=== PATIENT | male | born 1995 | race Two or more races ===

== ENCOUNTER 2019-01-02 21:22 | Emergency (ER) | payer SELFPAY ==
[~2019-01-02] VITALS: Ht 172.7 cm; Wt 60.4 kg
[2019-01-02 21:43] LABS: BASO % 0 % (0-3); EOS # 0.2 x10^3/uL (0.0-0.7); EOS % 2 % (0-3); HEMATOCRIT 41.4 % (39.0-53.0); LYMPH # 2.3 x10^3/uL (1.0-4.8); LYMPH % 23 % (24-48); MEAN CORPUSCULAR HEMOGLOBIN 28 pg (25-35); MEAN CORPUSCULAR HGB CONC 34 g/dL (31-37); MEAN CORPUSCULAR VOLUME 84 fL (79-100); MONO # 0.6 x10^3/uL (0.0-1.1); MONO % 7 % (0-9); NEUT # 6.7 x10^3/uL (1.8-7.7); NEUT % 68 % (31-73); PLATELET COUNT 152 x10^3/uL (140-400); RED BLOOD COUNT 4.91 x10^6/uL (4.30-5.70); RED CELL DISTRIBUTION WIDTH 12.8 % (11.5-14.5); WHITE BLOOD COUNT 9.9 x10^3/uL (4.0-11.0)
[2019-01-02 21:51] LABS: CALCIUM 8.6 mg/dL (8.5-10.1); CREATININE 1.1 mg/dL (0.7-1.3); GFR 82.2; POTASSIUM 3.5 mmol/L (3.5-5.1); PROTHROMBIN TIME PATIENT 14.5 SEC (11.7-14.0)
[2019-01-02 21:56] LABS: ALBUMIN 3.6 g/dL (3.4-5.0); TOTAL BILIRUBIN 0.5 mg/dL (0.2-1.0); TOTAL PROTEIN 7.2 g/dL (6.4-8.2)
[2019-01-02] MEDS ORDERED: IV NORMAL SALINE 1000ML BAG 1,000 ML IV SCH (22:00)
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
[2019-01-02] MEDS ORDERED: IOHEXOL 300 MG/ML 100ML VIAL. IV ONE (22:45)
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
[2019-01-02] MEDS ORDERED: DIPHTH,PERTUSS(ACELL),TET TOX 0.5 ML DISP.SYRIN. VAX IM ONE (23:00)
[2019-01-02] MEDS ORDERED: IV NORMAL SALINE 1000ML BAG 1,000 ML IV ONE (23:00)
[2019-01-02] MEDS ORDERED: fentaNYL PF VIAL 100 MCG/2 ML VIAL IV ONE (23:00)
[2019-01-02] MEDS ORDERED: ONDANSETRON PF 4 MG/2 ML VIAL. IV ONE (23:00)
[2019-01-02] MEDS ORDERED: CONTRAST GIVEN. MC PRN (23:00)
[2019-01-02 23:28] LABS: BILIRUBIN,URINE NEGATIVE (NEG); CLARITY,URINE CLEAR; COLOR,URINE YELLOW; NITRITE,URINE NEGATIVE (NEG); PH,URINE 5.5; PROTEIN,URINE NEGATIVE (NEG-TRACE); UROBILINOGEN,URINE 0.2 mg/dL (0.2 mg/dL)
[2019-01-02] MEDS ORDERED: CYCL10TA2 PO (23:32)
[2019-01-02] MEDS ORDERED: TRAM-48 PO (23:32)
[2019-01-02 23:42] LABS: SQUAMOUS EPITHELIAL CELL,UR FEW /LPF
[2019-01-02 23:43] LABS: BACTERIA,URINE 0 /HPF (0-FEW); HYALINE CASTS, URINE FEW /HPF; RBC,URINE 0 /HPF (0-2); WBC,URINE 0 /HPF (0-4)
[2019-01-02 23:45] LABS: AMPHETAMINE/METHAMPHETAMINE NEG (NEG); BARBITURATES NEG (NEG); BENZODIAZEPINES NEG (NEG); CANNABINOIDS NEG (NEG); COCAINE NEG (NEG); METHADONE NEG (NEG); OPIATES NEG (NEG); PHENCYCLIDINE NEG (NEG)
[2019-01-03 00:15] VITALS: BP 92/51
--- NOTE | 2019-01-03 11:24 | EKG ---
[facility] [address] [place] [address] Test Date: 2019-01-02 Test Time: 21:26:58 Pat Name: DOLORES JOHN Department: Room: Gender: M Airline Hostess: : 1995 Requested By: DANIKA LEE Order Number: [id number] Reading MD: Abdelrahman Martines MD Measurements Intervals [place] Rate: 60 P: 66 MD: 132 QRS: 74 QRSD: 108 T: 50 QT: 396 QTc: 396 Interpretive Statements SINUS RHYTHM INCOMPLETE RIGHT BUNDLE BRANCH BLOCK Electronically Signed On 01-12-2019 10:27:23 CDT by Abdelrahman Martines MD
== END 2019-01-03 00:25 | disposition home or self-care (01) ==
LOC: ER 21:22
DX: S10.83XA Contusion of other specified part of neck, initial encounter (principal); S30.1XXA Contusion of abdominal wall, initial encounter; V43.62XA Car passenger injured in collision with other type car in traffic accident, initial encounter; Y93.89 Activity, other specified; Y92.410 Unspecified street and highway as the place of occurrence of the external cause; Y99.8 Other external cause status
CPT/HCPCS: 36415; 70450; 71260; 72125; 74177; 80053; 80307; 81001; 83690; 85025; 85610; 85730; 90471; 90715; 93005; 96374; 96375; 99285; G0480; J2405; J3010; J7030; Q9967